=== PATIENT | male | born 1940 | race Caucasian/White ===

== ENCOUNTER → 2016-09-26 | Outpatient (CLI) | payer OTHER, MEDICARE ==
[~2016-09-26] MED LIST: ASPIR-LOW81 MG PO; CARVEDILOL3.125 MG PO; CRESTOR40 MG PO; GLUCOPHAGE500 MG PO; ZETIA10 MG PO
== END | disposition home or self-care (01) ==
LOC: NUC 09-23 14:00 → RAD 12:45 → NUC 14:00
DX: I51.7 Cardiomegaly (principal)
CPT/HCPCS: 71020; 78582; A9540; A9567

== ENCOUNTER 2016-12-16 13:14 | Day surgery (SDC) | payer OTHER, MEDICARE ==
[~2016-12-16] VITALS: Ht 175.3 cm; Wt 82.0 kg
[~2016-12-16 13:14] MED LIST changes: +ELIQUIS5 MG PO; +PRAVASTATIN SOD20 MG PO
== END 2016-12-16 15:23 | disposition home or self-care (01) ==
LOC: CATH 13:14
PROC: 5A2204Z Restoration of Cardiac Rhythm, Single (ICD-10-PCS; principal; 2016-12-16)
DX: I48.1 Persistent atrial fibrillation (principal); I48.92 Unspecified atrial flutter; I25.10 Atherosclerotic heart disease of native coronary artery without angina pectoris; Z95.1 Presence of aortocoronary bypass graft; I42.0 Dilated cardiomyopathy; I25.5 Ischemic cardiomyopathy; I25.2 Old myocardial infarction; E78.5 Hyperlipidemia, unspecified; I65.29 Occlusion and stenosis of unspecified carotid artery; I47.2 Ventricular tachycardia; I10 Essential (primary) hypertension; Z79.01 Long term (current) use of anticoagulants; Z79.82 Long term (current) use of aspirin; Z87.891 Personal history of nicotine dependence
CPT/HCPCS: 93005

== ENCOUNTER 2017-01-05 10:43 | Day surgery (SDC) | payer OTHER, MEDICARE ==
[~2017-01-05] VITALS: Ht 175.3 cm; Wt 80.7 kg
[~2017-01-05 10:43] MED LIST changes: +SOTALOL80 MG PO
[2017-01-05] MEDS ORDERED: ASPIR-LOW81 MG PO (11:18)
== END 2017-01-05 14:40 | disposition home or self-care (01) ==
LOC: CATH 10:43
PROC: 5A2204Z Restoration of Cardiac Rhythm, Single (ICD-10-PCS; principal; 2017-01-05)
DX: I48.1 Persistent atrial fibrillation (principal); I48.3 Typical atrial flutter; I47.2 Ventricular tachycardia; I42.0 Dilated cardiomyopathy; I25.5 Ischemic cardiomyopathy; I10 Essential (primary) hypertension; I25.10 Atherosclerotic heart disease of native coronary artery without angina pectoris; E78.01 Familial hypercholesterolemia; Z95.1 Presence of aortocoronary bypass graft; E11.9 Type 2 diabetes mellitus without complications; I34.0 Nonrheumatic mitral (valve) insufficiency; I65.22 Occlusion and stenosis of left carotid artery; I25.2 Old myocardial infarction; R55 Syncope and collapse; Z79.82 Long term (current) use of aspirin; Z79.01 Long term (current) use of anticoagulants; E78.5 Hyperlipidemia, unspecified; Z87.891 Personal history of nicotine dependence
CPT/HCPCS: 93005; J2250

== ENCOUNTER 2017-01-07 08:04 | Inpatient (IN) | payer OTHER, MEDICARE ==
[~2017-01-07] VITALS: Ht 175.3 cm; Wt 73.9 kg
[2017-01-07 08:45] LABS: EOSINOPHIL (%) 0.2 % (0-5); HEMATOCRIT 41.7 % (38.0-50.0); IMMATURE GRANULOCYTE (%) 0.5 % (0.0-0.7); IMMATURE GRANULOCYTE COUNT 0.1 K/uL; INSTRUMENT ABS NEUTROPHIL CT 8.9 K/uL; LYMPHOCYTE COUNT 1.7 K/uL (1.0-2.8); MCHC 33.3 G/DL (30.0-36.0); MCV 95.9 FL (86-99); MEAN PLAT.VOLUME 11.3 uM^3 (9.0-12.4); MONOCYTE (%) 10.8 % (3-12); MONOCYTE COUNT 1.3 K/uL (0-0.8); NEUTROPHIL (%) 74.4 % (45-76); NEUTROPHIL COUNT 8.9 K/uL (1.8-6.4); PLATELET COUNT 159 K/uL (156-360); RBC DIS.WIDTH-CV 12.7 % (11.8-14.6); RBC DIS.WIDTH-SD 45.7 % (39-53); RED BLOOD COUNT 4.35 M/uL (4.00-5.50)
[2017-01-07 09:21] LABS: INTER. NORMALIZED RATIO 1.3; PROTHROMBIN TIME 14.9 SEC (10.2-12.9)
[2017-01-07 09:24] LABS: PTT 32.3 SEC (25-37)
[2017-01-07 09:26] LABS: CHLORIDE 104 mEq/L (99-109); POTASSIUM 4.5 mEq/L (3.7-5.4); SODIUM 139 mEq/L (136-147)
[2017-01-07 09:29] LABS: GLUCOSE 121 mg/dL (70-99)
[2017-01-07 09:30] LABS: ANION GAP 11 MEQ/L (2-14)
[2017-01-07 09:31] LABS: TOTAL BILIRUBIN 1.8 mg/dL (0.0-1.0)
[2017-01-07 09:32] LABS: ALKALINE PHOSPHATASE 52 IU/L (3-129); GFR ESTIMATE (CALCULATED) > 59 mL/min/
[2017-01-07 09:33] LABS: UREA NITROGEN (BUN) 14 mg/dL (9-23)
[2017-01-07 09:36] LABS: TROP-I INTERPRETATION NEGATIVE; TROPONIN-I 0.11 ng/mL (0.0-0.30)
[2017-01-07] MEDS ORDERED: SOTALOL120 MG PO (12:04)
[2017-01-07 12:45] LABS: TROP-I INTERPRETATION NEGATIVE; TROPONIN-I 0.09 ng/mL (0.0-0.30)
[2017-01-07 13:56] VITALS: BP 123/67
[2017-01-07 17:42] LABS: BICARBONATE 27.9 mEq/L (22-26); CARBOXY HGB 2.3 % (0-5); METHEMOGLOBIN 1.4 % (0-1.5); PCO2 35 mm Hg (35-45); PO2 74 mm Hg (80-100); pH 7.51 (7.35-7.45)
[2017-01-07 17:44] LABS: COMMENTS - BLOOD GASES A+C+; DEVICE NC; O2 FLOW 2 L/MIN; SITE RR
[2017-01-07 18:27] LABS: TROP-I INTERPRETATION NEGATIVE; TROPONIN-I 0.09 ng/mL (0.0-0.30)
[2017-01-07 19:19] VITALS: BP 121/65
[2017-01-08] VITALS: BP 115/62
[2017-01-08 04:06] VITALS: BP 115/59
[2017-01-08 06:12] LABS: ANION GAP 7 MEQ/L (2-14); CHLORIDE 100 MEQ/L (99-109); GFR ESTIMATE (CALCULATED) > 59 mL/min/; GLUCOSE 109 mg/dL (70-99); POTASSIUM 3.8 MEQ/L (3.7-5.4); SAMPLE HEMOLYSIS CHECK 0; SAMPLE ICTERIC CHECK 0; SAMPLE LIPEMIA CHECK 0; SODIUM 138 MEQ/L (136-147); UREA NITROGEN (BUN) 17 mg/dL (9-23)
[2017-01-08 07:45] VITALS: BP 122/73
[2017-01-08 08:50] LABS: BASOPHIL COUNT 0.1 K/uL (0-0.1); EOSINOPHIL (%) 1.5 % (0-5); EOSINOPHIL COUNT 0.1 K/uL (0-0.3); IMMATURE GRANULOCYTE (%) 0.3 % (0.0-0.7); INSTRUMENT ABS NEUTROPHIL CT 3.2 K/uL; LYMPHOCYTE COUNT 2.5 K/uL (1.0-2.8); MCH 31.6 PG (29.0-34.0); MCHC 33.2 G/DL (30.0-36.0); MCV 95.3 FL (86-99); MEAN PLAT.VOLUME 11.6 uM^3 (9.0-12.4); MONOCYTE (%) 14.5 % (3-12); NEUTROPHIL (%) 46.4 % (45-76); NEUTROPHIL COUNT 3.2 K/uL (1.8-6.4); PLATELET COUNT 163 K/uL (156-360); RBC DIS.WIDTH-CV 13.1 % (11.8-14.6); RBC DIS.WIDTH-SD 45.8 % (39-53); WHITE BLOOD COUNT 6.9 K/uL (4.1-10.2)
[2017-01-08 12:08] VITALS: BP 108/69
[2017-01-08 16:00] VITALS: BP 110/67
[2017-01-08 18:52] VITALS: BP 108/65
[2017-01-09 04:00] VITALS: BP 114/65
[2017-01-09 06:15] LABS: ANION GAP 9 MEQ/L (2-14); CHLORIDE 98 MEQ/L (99-109); GFR ESTIMATE (CALCULATED) > 59 mL/min/; GLUCOSE 121 mg/dL (70-99); POTASSIUM 3.7 MEQ/L (3.7-5.4); SAMPLE HEMOLYSIS CHECK 0; SAMPLE ICTERIC CHECK 0; SAMPLE LIPEMIA CHECK 0; SODIUM 138 MEQ/L (136-147); UREA NITROGEN (BUN) 19 mg/dL (9-23)
[2017-01-09 07:57] VITALS: BP 121/65
[2017-01-09 12:07] VITALS: BP 140/69
[2017-01-09] MEDS ORDERED: FUROSEMIDE40 MG PO (13:18)
== END 2017-01-09 14:40 | disposition home or self-care (01) | DRG 292 ==
LOC: EME 08:04 → 5SOUTH 11:43 → EDOF 11:43 → 5SOUTH 12:43
PROVIDERS: Emergency Medicine; Hospitalist; Internal Medicine; Nurse Practitioner Adult Health
DX: I11.0 Hypertensive heart disease with heart failure (principal); I50.43 Acute on chronic combined systolic (congestive) and diastolic (congestive) heart failure; I48.92 Unspecified atrial flutter; R09.02 Hypoxemia; R07.89 Other chest pain; R00.1 Bradycardia, unspecified; I48.91 Unspecified atrial fibrillation; I08.1 Rheumatic disorders of both mitral and tricuspid valves; J44.9 Chronic obstructive pulmonary disease, unspecified; I25.10 Atherosclerotic heart disease of native coronary artery without angina pectoris; E11.9 Type 2 diabetes mellitus without complications; E78.5 Hyperlipidemia, unspecified; I44.30 Unspecified atrioventricular block; I25.2 Old myocardial infarction; Z95.1 Presence of aortocoronary bypass graft; Z95.5 Presence of coronary angioplasty implant and graft; Z79.01 Long term (current) use of anticoagulants; Z79.82 Long term (current) use of aspirin; Z87.891 Personal history of nicotine dependence
CPT/HCPCS: 36600; 71010; 71020; 80048; 80053; 82803; 83880; 84484; 85025; 85610; 85730; 93005; 93306; 94799; 99281; 99284; J1940; J2250; S0028